=== PATIENT | female | born 1960 | race Caucasian/White ===

== ENCOUNTER → 2016-11-11 | Outpatient (CLI) | payer MEDICARE, OTHER ==
[2016-11-11 12:22] LABS: EKG EKG PERFORMED
[2016-11-11 12:57] LABS: Basophils # (A) 0.1 k/uL (0-0.2); Basophils % (A) 1 %; CHCM 33.3; Eosinophils # (A) 0.1 k/uL (0-0.7); Eosinophils % (A) 1 %; HCT 41.9 % (34.0-46.0); HGB 13.6 gm/dL (11.4-16.0); Luc # (Auto) 0.07; Luc % (Auto) 1; Lymphocytes % (A) 35 %; MCH 29.2 pg (25.0-35.0); MCHC 32.4 g/dL (31.0-37.0); MCV 90.3 fL (80.0-100.0); Mean Platelet Volume 8.3; Monocytes # (A) 0.3 k/uL (0-1.0); Monocytes % (A) 4 %; Neutrophils # (A) 4.9 k/uL (1.3-7.7); Neutrophils % (A) 59 %; RBC 4.64 m/uL (3.80-5.40); RDW 13.1 % (11.5-15.5); WBC 8.4 k/uL (3.8-10.6); WBC (Perox) 8.11
[2016-11-11 13:06] LABS: Anion Gap 11 mmol/L; Carbon Dioxide 28 mmol/L (22-30); Chloride 106 mmol/L (98-107); Potassium 4.3 mmol/L (3.5-5.1); Sodium 145 mmol/L (137-145)
== END | disposition home or self-care (01) ==
LOC: LABPAT 11:28
PROVIDERS: ATTEND Orthopaedic Surgery
DX: Z01.812 Encounter for preprocedural laboratory examination (principal); Z01.810 Encounter for preprocedural cardiovascular examination
CPT/HCPCS: 80051; 85025; 93005

== ENCOUNTER 2016-12-10 08:47 | Day surgery (SDC) | payer MEDICARE, OTHER ==
[2016-12-05 11:07] VITALS: BMI 28.1
--- NOTE | 2016-12-09 12:38 | HP ---
DATE OF ADMISSION: Mary Bui is a 56-year-old patient seen with progressive right shoulder pain. After having options regarding treatment discussed, she elected to proceed with right shoulder arthroscopy. Consent was obtained. Past medical history is hyperlipidemia. Past surgical history is hysterectomy, laparoscopy, laminectomy/back surgery. DAILY MEDICATIONS: 1. Climara. 2. Crestor. 3. Flexeril. 4. Lyrica. 5. [place]. ALLERGIES: None. SOCIAL HISTORY: Patient smokes cigarettes. Physical evaluation of the right shoulder: Flexion is 90 degrees, abduction is 30 degrees, external rotation is 15 degrees with some weakness. Tenderness along the anterolateral acromion and rotator cuff insertion site. Impingement positive at 90 degrees, distal neurovascular exam is intact. Radiographs of the right shoulder revealed a previous humeral head fracture, which appears to be healing nicely. An MRI of the right shoulder revealed a humeral head fracture, rotator cuff tear, partial biceps tendon tear and labral tear. IMPRESSION: Right shoulder impingement with rotator cuff tear, labral tear and partial biceps tendon tear. PLAN: Right shoulder arthroscopy with subacromial decompression, probable arthroscopic rotator cuff repair, possible biceps tenotomy, and debridement.
[~2016-12-10 08:47] MED LIST: DEXAMETHASONE SOD PHOSPHATE 10 MG/ML 1 ML VIAL IV ONE; HYDROmorphone 1 MG/ML 1 ML SYRINGE IVP PRN; LACTATED RINGERS 1,000 ML IV SCH; LIDOCAINE 1% 20 ML VIAL (10MG/ML) FOR IV START INTRADERMA PRN; MIDAZOLAM 2 MG/2 ML VIAL IV PRN; ONDANSETRON 4 MG/2 ML VIAL IVP ONE; SCOPOLAMINE 1.5MG/72HR PATCH TRANSDERM ONE; ceFAZolin 2 GM in SODIUM CHLORIDE 0.9% 100 ML IVPB ONE; fentaNYL (PF) 50 MCG/ML 20 ML VIAL IVP PRN
[2016-12-10] MEDS ORDERED: fentaNYL (PF) 50 MCG/ML 2 ML AMP ONE (11:49)
[2016-12-10] MEDS ORDERED: ROPIVACAINE 5 MG/ML 30 ML VIAL ONE (11:49)
[2016-12-10] MEDS ORDERED: LIDOCAINE 2%-EPI 1:100,000 20 ML VIAL ONE (11:49)
[2016-12-10] MEDS ORDERED: PROPOFOL 10 MG/ML 20 ML VIAL IV ONE (11:49)
[2016-12-10] MEDS ORDERED: MIDAZOLAM 2 MG/2 ML VIAL ONE (11:49)
[2016-12-10] MEDS ORDERED: SUCCINYLCHOLINE CHLORIDE 100 MG/5 ML SYR IV ONE (11:49)
[2016-12-10] MEDS ORDERED: LIDOCAINE 1% INJ 10MG/ML (20 ML MDV) ONE (11:49)
[2016-12-10] MEDS ORDERED: LACTATED RINGERS 1,000 ML IV ONE (12:27)
--- NOTE | 2016-12-10 13:30 | P.OP ---
Date of Procedure: 12/10/16 Preoperative Diagnosis: Right shoulder impingement Postoperative Diagnosis: 1. Right shoulder rotator cuff tear 2. Right shoulder impingement 3. Right shoulder partial biceps tendon tear 4. Right shoulder superficial labral tear Procedure(s) Performed: 1. Right shoulder arthroscopic rotator cuff repair 2. Right shoulder arthroscopic subacromial decompression 3. Right shoulder arthroscopic biceps tenotomy 4. Right shoulder arthroscopic debridement labral tear Implants: 1-valeris anchor Anesthesia: KALEBA, regional (Shoulder block) Surgeon: Mark Redding [employer] Yard Supervisor #1: Garo Zuniga Estimated Blood Loss (ml): 10 Pathology: none sent Condition: stable Disposition: PACU Indications for Procedure: 56-year-old patient seen with progressive right shoulder pain. After having treatment options discussed, she elected to proceed with right shoulder arthroscopy. Operative Findings: See description of procedure Description of Procedure: Patient underwent a shoulder block by department of anesthesia. The patient was then taken to the operative suite. The patient underwent a general anesthetic by the department of anesthesia. The patient was placed into a lateral position and secured. There was appropriate padding of the bony prominence. Right shoulder was then prepped and draped in normal sterile orthopedic fashion. We placed the extremity in 10 pounds of longitudinal traction. A posterior incision was now made for a posterior working portal site. The trocar and cannula were inserted into the glenohumeral joint. Arthroscopy was initiated. Spinal needle was now inserted anteriorly, to ascertain the anterior working portal site. An incision was now made in that area, a trocar was inserted followed by a probe. There was superficial tearing of the superior/anterior labrum. There was partial biceps tendon tear. There was no obvious rotator cuff tear present in visualized from glenohumeral side. The glenohumeral joint itself was unremarkable with very mild grade 1 chondromalacia changes involving the glenoid. There were no loose bodies. An arthroscopic biceps tenotomy was performed. I debrided the superficial labral tears down to stable tissue. The residual labrum was probed and found to be stable. Instruments were now removed from the glenohumeral joint. Utilizing the posterior working portal site, the trocar and cannula were inserted into the subacromial space. Arthroscopy initiated. I made an incision 2 fingerbreadths lateral to the acromion. I introduced my trocar followed by my ArthroCare ablator. I now began ablating thick subacromial bursal tissue, which exposed the undersurface of the anterior acromion. This was diminished subacromial space. There was a very prominent anterior acromion. A motorized bur was introduced and a subacromial decompression was performed. I also excised some osteophytes off the inferior aspect of the distal clavicle. The AC joint was visualized and noted to be moderately arthritic. I did not feel enough toward a Nash procedure. I now turned my attention to the distal supraspinatus tear. There was about a 1.5 cm tear along the mid area of the distal supraspinatus. I debrided the tissue getting down to stable tendon tissue. I abraded the footprint with a motorized bur. I introduced 2 everted mattress sutures getting good bites of rotator cuff tendon tissue. I now repaired the tendon utilizing one single 5.5 peek anchor. The residual suture limbs were clipped. The repair was stable with good compression of the tendon along the footprint. I injected 1 mL of Allogen at the footprint repair site. Instruments now removed from the portal sites. All portal sites were approximated with nylon suture. Sterile dressings were applied followed by a shoulder immobilizer. Garo SOLITARIO assisted with the procedure. The patient was awakened, transferred to a bed, and taken to recovery in stable condition.
[2016-12-10 13:42] VITALS: RESP 16; TEMP 97.2
[2016-12-10 15:44] VITALS: BP 104/66; PULSE 82
== END 2016-12-10 16:45 | disposition home or self-care (01) ==
LOC: OR 08:47
PROVIDERS: ATTEND Orthopaedic Surgery
DX: M75.101 Unspecified rotator cuff tear or rupture of right shoulder, not specified as traumatic (principal); M75.41 Impingement syndrome of right shoulder; S46.211A Strain of muscle, fascia and tendon of other parts of biceps, right arm, initial encounter; S43.401A Unspecified sprain of right shoulder joint, initial encounter; X58.XXXA Exposure to other specified factors, initial encounter; M94.211 Chondromalacia, right shoulder; M25.711 Osteophyte, right shoulder; F17.210 Nicotine dependence, cigarettes, uncomplicated; E78.5 Hyperlipidemia, unspecified; Z79.891 Long term (current) use of opiate analgesic; Z79.899 Other long term (current) drug therapy
CPT/HCPCS: 29827; 29826; C1713; J2250; J1100; J0690; J2405; J2001; J3010; J2795; J0330; J2704

== ENCOUNTER → 2019-07-16 | Outpatient (CLI) | payer MEDICARE, OTHER ==
--- NOTE | 2019-07-16 16:46 | MR ---
EXAMINATION TYPE: MR lumbar spine wo/w con DATE OF EXAM: 07/16/2019 COMPARISON: None HISTORY: Radiculopathy, lumbar region TECHNIQUE: Multiplanar, multisequence images of the lumbar spine were acquired utilizing [address] gadolinium contrast. Lumbar vertebra have normal alignment. There is mild narrowing of L4-5 L5-S1 discs. There is small po sterior disc bulging at L4-5 and L5-S1. There is developmentally adequate spinal canal and no signifi cant spinal stenosis. There is laminectomy defect of L5 on the left side. Sacroiliac joints are intac t. There is no compression fracture. There is no lumbar paraspinal mass. There is a posterior lateral L4-5 disc herniation impinging on the lumbar nerve root. I see no focal bone destruction. Contrast images show no pathologic enhancement. IMPRESSION: Posterior lateral disc herniation at L4-5 on the right side with neural foraminal impingement. Clinic al correlation recommended. Previous surgery. Mild spondylotic changes at L4-5 L5-S1. No spinal stenosis.
== END ==
LOC: RADMRIMAIN 10:51
PROVIDERS: ATTEND Neuromusculoskeletal Medicine & OMM
DX: M51.16 Intervertebral disc disorders with radiculopathy, lumbar region (principal); M47.26 Other spondylosis with radiculopathy, lumbar region
CPT/HCPCS: 72158; A9585

== ENCOUNTER → 2021-07-09 | Outpatient (CLI) | payer MEDICARE, OTHER ==
--- NOTE | 2021-07-09 12:27 | XR ---
Lumbosacral spine HISTORY:W01.0XXA fall Lumbar discectomy 5 views of lumbosacral spine Correlation to lumbar spine MRI 07/16/2019 There is a mild scoliosis centered at L2-3. No evident spondylolysis or spondylolisthesis. Lumbar ronn tebral bodies show preserved height with the exception of superior endplate of L2 shows loss of heigh t. Superior endplate shows depression of approximately 25%, there may be minimal retropulsion of the superior endplate. Bone mineralization is reduced. There is overlying artifact. Loss of disc height g reatest at L5-S1, minimal retrolisthesis grade 1 L5-S1. Sclerosis present in the posterior elements. There is likely vacuum phenomenon L5-S1 and L4-5, loss of disc height at L4-5 is noted. Atherosclerot ic calcification present in the aortoiliac distribution. IMPRESSION: Osteoporotic compression fracture suspected L2 as described. Degenerative disc disease, f acet arthropathy. There is a mild spinal curvature.
== END | disposition home or self-care (01) ==
LOC: RADXRMAIN 11:46
PROVIDERS: ATTEND Neuromusculoskeletal Medicine & OMM
DX: M51.36 Other intervertebral disc degeneration, lumbar region (principal); M47.816 Spondylosis without myelopathy or radiculopathy, lumbar region; W01.0XXA Fall on same level from slipping, tripping and stumbling without subsequent striking against object, initial encounter
CPT/HCPCS: 72110

== ENCOUNTER → 2023-03-07 | Outpatient (CLI) | payer MEDICARE, OTHER ==
[2023-03-07 12:07] LABS: Appearance,Urine Clear (Clear); Bilirubin,Urine Negative (Negative); Blood,Urine Negative (Negative); Color,Urine Light Yellow; Glucose,Urine (UA) Negative (Negative); Ketones,Urine Negative (Negative); Leukocyte Esterase,Urine Negative (Negative); Nitrite,Urine Negative (Negative); PH, Urine 6.5 (5.0-8.0); Protein,Urine Negative (Negative); Specific Gravity,Urine 1.007 (1.001-1.035); Urobilinogen,Urine <2.0 mg/dL (<2.0)
== END | disposition home or self-care (01) ==
LOC: LABWHC1 11:08
PROVIDERS: ATTEND Urology
DX: R31.9 Hematuria, unspecified (principal)
CPT/HCPCS: 81003; 88120

== ENCOUNTER → 2024-08-31 | Outpatient (CLI) | payer MEDICARE, OTHER ==
--- NOTE | 2024-08-31 20:21 | MR ---
EXAMINATION TYPE: MR brain wo/w con DATE OF EXAM: 08/31/2024 8:04 PM COMPARISON: 08/06/2012. CLINICAL INDICATION: Female, 64 years old with history of G50.0 TRIGEMINAL NEURALGIA; PHH, Trigeminal Neuralgia, Recent episode of headaches and burning sensation, right side. Evaluate for stroke, Hx of Trigeminal neuralgia and aneurysm, Hx of craniotomy for subarachnoid hemorrhage Sep 2001 TECHNIQUE: Multi planar, multi sequence imaging was performed through the brain including: T1, T2, In version recovery, susceptibility weighted imaging and gradient echo imaging and Diffusion weighted im aging. The patient was then given intravenous contrast and multi planar, T1 fat-saturation images wer e obtained. IV Contrast: 7 mL Gadavist FINDINGS: A vessel closely approximates the right trigeminal nerve on the series 901 image 203 this i s near the brainstem. Right cerebellar hemisphere developmental venous anomaly. The mcgill-white juncti ons, ventricular system, basal cisterns appear unremarkable. Diffusion-weighted imaging shows no kavin dence of restricted diffusion to suggest acute/subacute infarct. Intracranial arterial flow voids are maintained. Midline structures show no abnormality. Scattered foci of high T2 signal intensity are s een within the periventricular white matter. The susceptibility weighted images do not reveal any kavin dence for micro-hemorrhage. After administration of gadolinium, no abnormal enhancement is seen. The bone marrow signal is within normal limits. Paranasal sinuses and mastoid air cells: No significant paranasal sinus disease. Visualized orbits: Orbital contents are intact. IMPRESSION: 1. A vessel closely approximates the right trigeminal nerve near the brainstem. 2. No evidence of intracranial mass, acute/subacute infarct, or abnormal enhancement. 3. Nonspecific white matter changes, likely related to small vessel ischemic disease. 4. Right cerebellar hemisphere developmental venous anomaly. [facility], , 08/31/2024 8:19 PM
== END | disposition home or self-care (01) ==
LOC: RADMRIMAIN 17:53
PROVIDERS: ATTEND Neuromusculoskeletal Medicine & OMM
DX: G50.0 Trigeminal neuralgia (principal); I67.1 Cerebral aneurysm, nonruptured; Q04.9 Congenital malformation of brain, unspecified; Z98.890 Other specified postprocedural states; Z86.79 Personal history of other diseases of the circulatory system; Z86.73 Personal history of transient ischemic attack (TIA), and cerebral infarction without residual deficits
CPT/HCPCS: 70553; A9585

== ENCOUNTER → 2024-09-07 | Outpatient (CLI) | payer MEDICARE, OTHER ==
--- NOTE | 2024-09-07 12:58 | MR ---
EXAMINATION TYPE: MR angio head wo con DATE OF EXAM: 09/07/2024 9:26 AM COMPARISON: None. CLINICAL INDICATION: Female, 64 years old with history of Z86.79 PERSONAL HISTORY OF OTHER DISEASES O F THE C; PHH, R/o stroke, hx of surgical intervention of subarachnoid hemorrhage, Abnormal MRI Trigem inal Neuralgia, Recent episode of headaches and burning sensation Evaluate for stroke, TECHNIQUE: 3-D [id number] Axial with MIP reconstruction created on a separate workstation.. IV Contrast: mL (None, if empty) FINDINGS: Vertebral arteries: The vertebral arteries are patent. Vertebral arteries are: Codominant. Basilar artery: The basilar artery is intact. The basilar artery bifurcation is normal. Internal Carotid arteries: The cervical, petrous, cavernous and supraclinoid segments are normal. ANDREW: Patent with no evidence of aneurysm. ACOM: Present without evidence of aneurysm. MCA: Patent with no evidence of aneurysm. MORTGAGE OR LOAN UNDERWRITER: Patent with no evidence of aneurysm. PCOM: Hypoplastic bilaterally. IMPRESSION: No evidence of aneurysm or significant stenosis. [facility], , 09/07/2024 12:56 PM
== END | disposition home or self-care (01) ==
LOC: RADMRIMAIN 08:47
PROVIDERS: ATTEND Neuromusculoskeletal Medicine & OMM
DX: Z86.79 Personal history of other diseases of the circulatory system (principal)
CPT/HCPCS: 70544